=== PATIENT | female | born 1990 | race Caucasian/White ===

== ENCOUNTER 2017-07-03 04:59 | Observation (INO) | payer OTHER ==
[~2017-07-03] VITALS: Ht 157.5 cm; Wt 68.0 kg
[2017-07-03] MEDS ORDERED: PNV1TABL76 PO (05:41)
== END 2017-07-03 05:40 | disposition home or self-care (01) ==
LOC: L&D 04:59
PROVIDERS: ADMIT Obstetrics & Gynecology; ATTEND Obstetrics & Gynecology
DX: O26.892 Other specified pregnancy related conditions, second trimester (principal); R10.11 Right upper quadrant pain; Z3A.23 23 weeks gestation of pregnancy
CPT/HCPCS: G0378

== ENCOUNTER 2017-07-03 05:59 | Emergency (ER) | payer OTHER ==
[~2017-07-03] VITALS: Ht 157.5 cm; Wt 69.0 kg
[~2017-07-03 05:59] MED LIST: PNV1TABL76 PO
[2017-07-03] MEDS ORDERED: MORPHINE SULFATE 4 MG/ML CPJ (NOT FOR IM USE) IV STA (06:19)
[2017-07-03] MEDS ORDERED: METOCLOPRAMIDE HCL 10MG/2ML VIAL IV ONE (06:30)
[2017-07-03 06:31] LABS: CLARITY URINE CLOUDY (CLEAR); COLOR URINE YELLOW (YELLOW); KETONES URINE NEGATIVE (NEGATIVE); LEUKOCYTE ESTERASE URINE 1+ (NEGATIVE); NITRITE URINE POSITIVE (NEGATIVE); OCCULT BLOOD URINE NEGATIVE (NEGATIVE); PROTEIN URINE NEGATIVE (NEGATIVE)
[2017-07-03 06:46] LABS: CHLORIDE 107 mEq/L (98-107)
[2017-07-03 06:47] LABS: INR 0.9; PROTHROMBIN TIME 9.9 sec (9.4-11.6)
[2017-07-03 06:54] LABS: BASOPHILS % 0.6 % (0.0-2.0); EOSINOPHILS % 1.1 % (0.0-5.0); HEMATOCRIT. 27.5 % (36.0-48.0); LYMPHOCYTES % 15.2 % (20.0-50.0); MEAN CORPUSCULAR HEMOGLOBIN 25.7 pg (28.0-32.0); MEAN CORPUSCULAR VOLUME 78.5 fL (81.0-99.0); MEAN PLATELET VOLUME 7.8 fl (7.4-10.4); MONOCYTES % 8.5 % (2.0-8.0); NEUTROPHILS % 74.6 % (40.0-76.0); PLATELET 331 x1000/uL (130-400); RED CELL DISTRIBUTION WIDTH 15.9 % (11.6-14.6)
[2017-07-03] MEDS ORDERED: SODIUM CHLORIDE 0.9% 1,000 ML IV ONE ×2 (07:15→09:15)
[2017-07-03 07:28] LABS: B-HCG QUANTITATIVE 9117 mIU/mL (<3)
[2017-07-03] MEDS ORDERED: CEFTRIAXONE 1 G PREMIX 50 ML IV ONE (09:30)
[2017-07-03 12:13] VITALS: BP 101/52
== END 2017-07-03 12:18 | disposition short-term general hospital (02) ==
LOC: ER 05:59
DX: O23.42 Unspecified infection of urinary tract in pregnancy, second trimester (principal); O26.612 Liver and biliary tract disorders in pregnancy, second trimester; O99.012 Anemia complicating pregnancy, second trimester; K80.20 Calculus of gallbladder without cholecystitis without obstruction; D64.9 Anemia, unspecified; Z3A.23 23 weeks gestation of pregnancy
CPT/HCPCS: 36415; 76705; 80053; 81003; 83690; 84702; 85025; 85610; 96361; 96365; 96366; 96375; 99285; J0696; J2765; J7030; J2270